=== PATIENT | male | born 1980 | race Asian ===

== ENCOUNTER 2018-03-13 19:33 | Emergency (ER) | payer OTHER ==
[~2018-03-13] VITALS: Ht 180.3 cm; Wt 94.8 kg
[2018-03-13 19:40] VITALS: BP_SYST 99
--- NOTE | 2018-03-13 19:40 | NUR ---
Patient to ER bed 4 to gown for evaluation. Side rails up.
--- NOTE | 2018-03-13 19:40 | NUR ---
Patient AAOx4, ambulatory with crutches. Patient states having a main complaint of left foot pain for approximately 3 days prior to ER visit. Patient states having a history of gout and states "I have been eating steak more than usual". Patient denies any mechanical injury. No redness or deformity noted to left foot. Patient denies any other complaints.
--- NOTE | 2018-03-13 19:52 | NUR ---
ER ANNA Lloyd at bedside examining patient.
[2018-03-13] MEDS ORDERED: COLCHICINE 0.6 MG TABLET PO ONE ×2 (20:00)
[2018-03-13] MEDS ORDERED: KETOROLAC TROMETHAMINE 30 MG VIAL IM ONE (20:00)
[2018-03-13] MEDS ORDERED: DEXAMETHASONE SOD PHOSPHATE 10 MG/ML VIAL IM ONE (20:00)
[2018-03-13] MEDS ORDERED: COLCHICINE 0.6 MG TABLET ONE (20:19)
[2018-03-13 20:25] LABS: BASOPHILS # (AUTO) 0.1 K/uL (0.0-0.2); BASOPHILS % (AUTO) 0.9 % (0.0-2.0); EOSINOPHILS # (AUTO) 0.5 K/uL (0.0-0.4); EOSINOPHILS % (AUTO) 5.8 % (0.0-4.0); HEMATOCRIT 45.6 % (36-54); HEMOGLOBIN 15.3 g/dL (14.0-18.0); LYMPHOCYTES # (AUTO) 1.4 K/uL (1.0-5.5); LYMPHOCYTES % (AUTO) 15.7 % (20.5-51.5); MEAN CORPUSCULAR HEMOGLOBIN 30 pg (27-31); MEAN CORPUSCULAR HGB CONC 34 % (32-36); MEAN CORPUSCULAR VOLUME 89 fL (79.0-98.0); MONOCYTES # (AUTO) 0.7 K/uL (0.0-1.0); MONOCYTES % (AUTO) 8.2 % (1.7-9.3); NEUTROPHILS # (AUTO) 6.2 K/uL (1.8-7.7); NEUTROPHILS % (AUTO) 69.4 % (40.0-70.0); PLATELET COUNT (AUTO) 300 K/uL (130-430); RED BLOOD CELL COUNT(AUTO) 5.12 MIL/uL (4.2-6.2); RED CELL DISTRIBUTION WIDTH 12.6 % (9.0-15.0); WHITE BLOOD COUNT (AUTO) 8.9 K/uL (4.8-10.8)
[2018-03-13 20:31] LABS: CALCIUM 9.2 mg/dL (8.4-11.0); CREATININE 1.15 mg/dL (0.55-1.30); POTASSIUM 3.9 mmol/L (3.5-5.1)
[2018-03-13 20:36] LABS: ALBUMIN 3.6 g/dL (3.4-4.8); TOTAL BILIRUBIN 0.5 mg/dL (0.0-1.0); URIC ACID 7.8 mg/dL (2.4-7.0)
[2018-03-13 21:20] VITALS: BP_SYST 108
--- NOTE | 2018-03-13 21:20 | NUR ---
Patient given written and verbal discharge instructions and verbalizes understanding. ER MD discussed with patient the results and treatment provided. Patient in stable condition. ID arm band removed. Rx of naproxen, norco, and prednisone given. Patient educated on pain management and to follow up with PMD. Pain Scale 0/10. Opportunity for questions provided and answered.
== END 2018-03-13 21:20 | disposition home or self-care (01) ==
LOC: SED 19:33
DX: M10.9 Gout, unspecified (principal)
CPT/HCPCS: 36415; 73610; 80053; 84550; 85025; 96372; 99285; J1100; J1885

== ENCOUNTER 2018-10-21 01:58 | Emergency (ER) | payer OTHER ==
[~2018-10-21] VITALS: Ht 180.3 cm; Wt 94.3 kg
[2018-10-21 02:05] VITALS: BP_SYST 153
[2018-10-21] MEDS ORDERED: KETOROLAC TROMETHAMINE 60 MG/2 ML VIAL IM ONE (02:30)
[2018-10-21 02:38] VITALS: BP_SYST 153
== END 2018-10-21 02:37 | disposition home or self-care (01) ==
LOC: SED 01:58
DX: M10.072 Idiopathic gout, left ankle and foot (principal); R03.0 Elevated blood-pressure reading, without diagnosis of hypertension
CPT/HCPCS: 96372; 99283; J1885

== ENCOUNTER 2019-09-02 18:07 | Emergency (ER) | payer OTHER ==
[~2019-09-02] VITALS: Ht 180.3 cm; Wt 93.0 kg
[2019-09-02 18:34] VITALS: BP_SYST 153
[2019-09-02] MEDS ORDERED: LIDOCAINE/EPI 1% 1:100000 20 ML VIAL INJ ONE (20:45)
[2019-09-02] MEDS ORDERED: methylPREDNISolone SOD SUCC/PF 62.5 MG/ML VIAL ONE (21:50)
[2019-09-02 21:55] VITALS: BP_SYST 135
== END 2019-09-02 21:55 | disposition home or self-care (01) ==
LOC: SED 18:07
DX: S83.92XA Sprain of unspecified site of left knee, initial encounter (principal); M10.9 Gout, unspecified; X50.1XXA Overexertion from prolonged static or awkward postures, initial encounter; Y93.89 Activity, other specified; Y92.89 Other specified places as the place of occurrence of the external cause; Y99.8 Other external cause status
CPT/HCPCS: 20611; 73564; 99284; J2930

== ENCOUNTER 2019-09-07 13:51 | Outpatient (CLI) | payer OTHER ==
[2019-09-07 14:37] LABS: BASOPHILS # (AUTO) 0.2 K/uL (0.0-0.2); BASOPHILS % (AUTO) 2.4 % (0.0-2.0); EOSINOPHILS # (AUTO) 0.8 K/uL (0.0-0.4); EOSINOPHILS % (AUTO) 10.6 % (0.0-4.0); HEMATOCRIT 47.4 % (36-54); HEMOGLOBIN 15.7 g/dL (14.0-18.0); LYMPHOCYTES # (AUTO) 2.1 K/uL (1.0-5.5); LYMPHOCYTES % (AUTO) 27.9 % (20.5-51.5); MEAN CORPUSCULAR HEMOGLOBIN 29 pg (27-31); MEAN CORPUSCULAR HGB CONC 33 % (32-36); MEAN CORPUSCULAR VOLUME 88 fL (79.0-98.0); MONOCYTES # (AUTO) 0.6 K/uL (0.0-1.0); MONOCYTES % (AUTO) 8.1 % (1.7-9.3); NEUTROPHILS # (AUTO) 3.8 K/uL (1.8-7.7); PLATELET COUNT (AUTO) 323 K/uL (130-430); RED BLOOD CELL COUNT(AUTO) 5.36 MIL/uL (4.2-6.2); RED CELL DISTRIBUTION WIDTH 13.7 % (9.0-15.0); WHITE BLOOD COUNT (AUTO) 7.5 K/uL (4.8-10.8)
[2019-09-07 14:48] LABS: BILIRUBIN,URINE NEGATIVE (NEGATIVE); BLOOD, URINE NEGATIVE (NEGATIVE); CLARITY/URINE CLEAR (CLEAR); COLOR,URINE YELLOW (YELLOW); GLUCOSE,URINE NEGATIVE (NEGATIVE); KETONES,URINE NEGATIVE (NEGATIVE); LEUKOCYTE ESTERASE ,URINE NEGATIVE (NEGATIVE); NITRITE, URINE NEGATIVE (NEGATIVE); PROTEIN URINE NEGATIVE (NEGATIVE); UROBILINOGEN,URINE 0.2 (0.2-1.0)
[2019-09-07 14:57] LABS: ALANINE AMINOTRANSFERASE 34 U/L (12-78); ALBUMIN 3.7 g/dL (3.4-4.8); ANION GAP 5 (5-15); ASPARTATE AMINOTRANSFERASE 20 U/L (10-37); C-REACTIVE PROTEIN QUANT < 0.2 mg/dL (0-0.5); CALCIUM 9.1 mg/dL (8.4-11.0); CHLORIDE 101 mmol/L (98-107); CHOLESTEROL 201 mg/dL (<200); CREATININE 1.41 mg/dL (0.55-1.30); GLUCOSE 94 mg/dL (70-99); HDL CHOLESTEROL 47 mg/dL (>45); LDL CHOLESTEROL 134 mg/dL (<100); POTASSIUM 3.5 mmol/L (3.5-5.1); SODIUM SERUM 138 mmol/L (136-145); TOTAL BILIRUBIN 0.3 mg/dL (0.0-1.0); TRIGLYCERIDES 157 mg/dL (30-150); UREA NITROGEN, BLOOD 18 mg/dL (8-21); URIC ACID 10.2 mg/dL (2.4-7.0)
[2019-09-07 15:01] LABS: GFR AFRICAN AMERICAN 72 mL/min (>90)
[2019-09-07 15:21] LABS: THYROID STIMULATING HORMONE 4.09 uIu/mL (0.36-3.74)
[2019-09-07 15:51] LABS: ERYTHROCYTE SEDIMENTATION RATE 25 MM/HR (0-15)
[2019-09-08 08:11] LABS: RA LATEX TURBID <10.0 IU/mL (0.0-13.9)
[2019-09-08 14:17] LABS: ANTI NUCLEAR AB WITH REFLEX Negative (Negative)
[2019-09-08 14:29] LABS: HEMOGLOBIN A1C 5.7 % (4.8-5.6)
== END 2019-09-07 20:01 | disposition home or self-care (01) ==
LOC: SLB 13:51
PROVIDERS: ATTEND Internal Medicine
DX: Z00.00 Encounter for general adult medical examination without abnormal findings (principal)
CPT/HCPCS: 36415; 80053; 80061; 81003; 82306; 82607; 83036; 84443-TC; 84550-TC; 85025; 85651-TC; 86038; 86140; 86431

== ENCOUNTER 2019-11-12 15:45 | Emergency (ER) | payer OTHER ==
[~2019-11-12] VITALS: Ht 180.3 cm; Wt 91.6 kg
[2019-11-12 15:45] VITALS: BP_SYST 148
[2019-11-12] MEDS ORDERED: LIDOCAINE 1% 10 MG/ML, 20 ML MDV INJ ONE ×2 (16:00→22:30)
[2019-11-12] MEDS ORDERED: cefTRIAXone 1 GM IVPB PREMIX 50 ML IV ONE (20:15)
[2019-11-12] MEDS ORDERED: methylPREDNISolone ACETATE 80 MG/ML IM ONE (22:30)
[2019-11-13 02:27] VITALS: BP_SYST 140
== END 2019-11-13 02:27 | disposition home or self-care (01) ==
LOC: SED 15:45
DX: M11.262 Other chondrocalcinosis, left knee (principal); M11.261 Other chondrocalcinosis, right knee; M25.462 Effusion, left knee; M10.9 Gout, unspecified
CPT/HCPCS: 36415; 73560; 76942; 84560; 87070; 89060; 96365; 96372; 99285; J0696; J1040; J2001

== ENCOUNTER → 2020-12-03 | Outpatient (CLI) | payer OTHER ==
[2020-12-03 11:01] LABS: BASOPHILS # (AUTO) 0.1 K/uL (0.0-0.2); BASOPHILS % (AUTO) 1.3 % (0.0-2.0); EOSINOPHILS # (AUTO) 0.3 K/uL (0.0-0.4); EOSINOPHILS % (AUTO) 3.8 % (0.0-4.0); HEMATOCRIT 48.3 % (36-54); HEMOGLOBIN 16.1 g/dL (14.0-18.0); LYMPHOCYTES # (AUTO) 1.9 K/uL (1.0-5.5); LYMPHOCYTES % (AUTO) 28.2 % (20.5-51.5); MEAN CORPUSCULAR HEMOGLOBIN 30 pg (27-31); MEAN CORPUSCULAR HGB CONC 33 % (32-36); MEAN CORPUSCULAR VOLUME 90 fL (79.0-98.0); MONOCYTES # (AUTO) 0.6 K/uL (0.0-1.0); MONOCYTES % (AUTO) 8.3 % (1.7-9.3); NEUTROPHILS # (AUTO) 3.9 K/uL (1.8-7.7); NEUTROPHILS % (AUTO) 58.4 % (40.0-70.0); PLATELET COUNT (AUTO) 259 K/uL (130-430); RED BLOOD CELL COUNT(AUTO) 5.37 MIL/uL (4.2-6.2); RED CELL DISTRIBUTION WIDTH 14.5 % (9.0-15.0); WHITE BLOOD COUNT (AUTO) 6.7 K/uL (4.8-10.8)
[2020-12-03 11:38] LABS: POTASSIUM 4.5 mmol/L (3.5-5.1); TOTAL BILIRUBIN 0.4 mg/dL (0.0-1.0)
[2020-12-03 11:39] LABS: THYROID STIMULATING HORMONE 2.06 uIu/mL (0.36-3.74); URIC ACID 5.3 mg/dL (2.4-7.0)
[2020-12-03 12:39] LABS: ERYTHROCYTE SEDIMENTATION RATE 11 MM/HR (0-15)
[2020-12-04 03:06] LABS: HEMOGLOBIN A1C 5.5 % (4.8-5.6)
== END | disposition home or self-care (01) ==
LOC: SLB 10:21
PROVIDERS: ATTEND Internal Medicine
DX: Z00.01 Encounter for general adult medical examination with abnormal findings (principal); M10.072 Idiopathic gout, left ankle and foot; E55.9 Vitamin D deficiency, unspecified; E03.9 Hypothyroidism, unspecified
CPT/HCPCS: 36415; 80053; 80061; 82306; 82607; 83036; 83735; 84439; 84443; 84550; 85025; 85651-TC

== ENCOUNTER 2020-12-04 10:40 | Outpatient (CLI) | payer OTHER | END 2020-12-05 16:06 | disposition home or self-care (01) | LOC: SMI 10:40 | PROVIDERS: ATTEND Internal Medicine | DX: S83.207A Unspecified tear of unspecified meniscus, current injury, left knee, initial encounter (principal); M22.42 Chondromalacia patellae, left knee; M25.462 Effusion, left knee; X58.XXXA Exposure to other specified factors, initial encounter; Y93.89 Activity, other specified; Y92.89 Other specified places as the place of occurrence of the external cause; Y99.8 Other external cause status | CPT/HCPCS: 73721 ==

== ENCOUNTER 2021-05-04 15:47 | Outpatient (CLI) | payer OTHER ==
[2021-05-04 17:03] LABS: BASOPHILS # (AUTO) 0.1 K/uL (0.0-0.2); BASOPHILS % (AUTO) 1.4 % (0.0-2.0); EOSINOPHILS # (AUTO) 0.1 K/uL (0.0-0.4); EOSINOPHILS % (AUTO) 2.6 % (0.0-4.0); HEMATOCRIT 45.7 % (36-54); HEMOGLOBIN 15.7 g/dL (14.0-18.0); LYMPHOCYTES # (AUTO) 1.7 K/uL (1.0-5.5); LYMPHOCYTES % (AUTO) 34.4 % (20.5-51.5); MEAN CORPUSCULAR HEMOGLOBIN 30 pg (27-31); MEAN CORPUSCULAR HGB CONC 34 % (32-36); MEAN CORPUSCULAR VOLUME 88 fL (79.0-98.0); MONOCYTES # (AUTO) 0.5 K/uL (0.0-1.0); NEUTROPHILS # (AUTO) 2.7 K/uL (1.8-7.7); NEUTROPHILS % (AUTO) 52.6 % (40.0-70.0); PLATELET COUNT (AUTO) 213 K/uL (130-430); RED BLOOD CELL COUNT(AUTO) 5.18 MIL/uL (4.2-6.2); RED CELL DISTRIBUTION WIDTH 14.3 % (9.0-15.0); WHITE BLOOD COUNT (AUTO) 5.1 K/uL (4.8-10.8)
[2021-05-04 17:34] LABS: ANION GAP 11 (5-15); CALCIUM 9.4 mg/dL (8.4-11.0); CHLORIDE 101 mmol/L (98-107); GLUCOSE 101 mg/dL (70-99); POTASSIUM 3.6 mmol/L (3.5-5.1); SODIUM SERUM 138 mmol/L (136-145)
[2021-05-04 17:35] LABS: ALANINE AMINOTRANSFERASE 36 U/L (12-78); ALBUMIN 4.1 g/dL (3.4-4.8); ASPARTATE AMINOTRANSFERASE 21 U/L (10-37); GFR AFRICAN AMERICAN 120 mL/min (>90); TOTAL BILIRUBIN 0.5 mg/dL (0.0-1.0); UREA NITROGEN, BLOOD 12 mg/dL (8-21); URIC ACID 5.8 mg/dL (2.4-7.0)
[2021-05-04 17:43] LABS: ERYTHROCYTE SEDIMENTATION RATE 7 MM/HR (0-15)
[2021-05-04 18:07] LABS: BILIRUBIN,URINE NEGATIVE (NEGATIVE); BLOOD, URINE NEGATIVE (NEGATIVE); CLARITY/URINE CLEAR (CLEAR); COLOR,URINE YELLOW (YELLOW); GLUCOSE,URINE NEGATIVE (NEGATIVE); KETONES,URINE NEGATIVE (NEGATIVE); LEUKOCYTE ESTERASE ,URINE NEGATIVE (NEGATIVE); NITRITE, URINE NEGATIVE (NEGATIVE); PROTEIN URINE NEGATIVE (NEGATIVE); UROBILINOGEN,URINE 0.2 (0.2-1.0)
[2021-05-04 18:08] LABS: THYROID STIMULATING HORMONE 1.67 uIu/mL (0.36-3.74)
[2021-05-04 19:07] LABS: C-REACTIVE PROTEIN QUANT < 0.2 mg/dL (0-0.5); CHOLESTEROL 201 mg/dL (<200); HDL CHOLESTEROL 68 mg/dL (>45); LDL CHOLESTEROL 132 mg/dL (<100); TRIGLYCERIDES 72 mg/dL (30-150)
[2021-05-05 06:09] LABS: HEMOGLOBIN A1C 5.5 % (4.8-5.6)
== END 2021-05-04 20:34 | disposition home or self-care (01) ==
LOC: SLB 15:47
PROVIDERS: ATTEND Internal Medicine
DX: E03.9 Hypothyroidism, unspecified (principal); M10.00 Idiopathic gout, unspecified site; E55.9 Vitamin D deficiency, unspecified; M17.12 Unilateral primary osteoarthritis, left knee; M54.40 Lumbago with sciatica, unspecified side
CPT/HCPCS: 36415; 80053; 80061; 81003; 82306; 82607; 83036; 83735; 84443; 84550; 85025; 85651-TC; 86140

== ENCOUNTER 2022-12-20 16:42 | Emergency (ER) | payer OTHER ==
[~2022-12-20] VITALS: Ht 180.3 cm; Wt 90.7 kg
[2022-12-20] MEDS ORDERED: TRAM50TA2 PO (16:57)
[2022-12-20] MEDS ORDERED: MORPHINE 4 MG INJ. 4 MG/ML VIAL IM ONE (17:00)
--- NOTE | 2022-12-20 17:00 | NUR ---
PT BIB SELF AWAKE AND ALERT. PT C/O BACK PAIN 03/10. PT DENIES TRAUMA. PT HAS HX OF LOWER BACK PAIN.
--- NOTE | 2022-12-20 17:05 | NUR ---
MD DR ESCOBAR AT BEDSIDE
[2022-12-20 17:28] VITALS: BP_SYST 135
--- NOTE | 2022-12-20 17:30 | NUR ---
Patient given written and verbal discharge instructions and verbalizes understanding. ER MD DR ESCOBAR discussed with patient the results and treatment provided. Patient in stable condition. ID arm band removed. Rx of TRAMADOL given. Patient educated on pain management and to follow up with PMD. Pain Scale 2/10. Opportunity for questions provided and answered. Medication side effect fact sheet provided.
[2022-12-20 19:31] VITALS: BP_SYST 135
== END 2022-12-20 19:31 | disposition home or self-care (01) ==
LOC: SED 16:42
DX: M54.50 Low back pain, unspecified (principal); G89.29 Other chronic pain; Z79.899 Other long term (current) drug therapy
CPT/HCPCS: 99283; 96372; J2270

== ENCOUNTER 2023-03-11 09:48 | Emergency (ER) | payer OTHER ==
[~2023-03-11] VITALS: Ht 180.3 cm; Wt 94.3 kg
[~2023-03-11 09:48] MED LIST: TRAM50TA2 PO
[2023-03-11 09:59] VITALS: BP_SYST 143; PULSE 62; RESP 18; TEMP 97.4; O2SAT 96
[2023-03-11] MEDS ORDERED: IBUP-1971 PO (11:09)
[2023-03-11] MEDS ORDERED: SOM350 PO (11:09)
[2023-03-11 11:20] VITALS: BP_SYST 143; PULSE 62; RESP 18; TEMP 97.4; O2SAT 96
== END 2023-03-11 11:19 | disposition home or self-care (01) ==
LOC: SED 09:48
DX: S13.4XXA Sprain of ligaments of cervical spine, initial encounter (principal); S33.5XXA Sprain of ligaments of lumbar spine, initial encounter; S09.90XA Unspecified injury of head, initial encounter; Z79.899 Other long term (current) drug therapy; V49.40XA Driver injured in collision with unspecified motor vehicles in traffic accident, initial encounter; Y93.89 Activity, other specified; Y92.89 Other specified places as the place of occurrence of the external cause; Y99.8 Other external cause status
CPT/HCPCS: 70450-TC; 72100-TC; 72125-TC; 76376; 99284

== ENCOUNTER 2023-03-18 16:58 | Emergency (ER) | payer OTHER ==
[~2023-03-18] VITALS: Ht 180.3 cm; Wt 91.6 kg
[~2023-03-18 16:58] MED LIST changes: +IBUP-1971 PO; +SOM350 PO
[2023-03-18 17:30] VITALS: BP_SYST 112; PULSE 66; RESP 18; TEMP 97.7; O2SAT 98
[2023-03-18] MEDS ORDERED: MORPHINE 4 MG INJ. 4 MG/ML VIAL IM ONE (18:30)
[2023-03-18] MEDS ORDERED: IBUP-1971 PO (18:33)
[2023-03-18] MEDS ORDERED: HYDR-3927 PO (18:33)
[2023-03-18 18:49] VITALS: BP_SYST 112; PULSE 66; RESP 18; TEMP 97.7; O2SAT 98
== END 2023-03-18 18:49 | disposition home or self-care (01) ==
LOC: SED 16:58
DX: G89.29 Other chronic pain (principal); M54.50 Low back pain, unspecified; M79.662 Pain in left lower leg; Z79.899 Other long term (current) drug therapy
CPT/HCPCS: 99283; 96372; J2270

== ENCOUNTER 2023-04-13 16:08 | Outpatient (CLI) | payer OTHER ==
[~2023-04-13 16:08] MED LIST changes: +HYDR-3927 PO
[2023-04-13 16:50] LABS: BASOPHILS # (AUTO) 0.1 K/uL (0.0-0.2); BASOPHILS % (AUTO) 1.1 % (0.0-2.0); EOSINOPHILS # (AUTO) 0.3 K/uL (0.0-0.4); HEMATOCRIT 44.9 % (36-54); HEMOGLOBIN 14.9 g/dL (14.0-18.0); LYMPHOCYTES # (AUTO) 1.4 K/uL (1.0-5.5); LYMPHOCYTES % (AUTO) 18.9 % (20.5-51.5); MEAN CORPUSCULAR HEMOGLOBIN 28 pg (27-31); MEAN CORPUSCULAR HGB CONC 33 % (32-36); MEAN CORPUSCULAR VOLUME 86 fL (79.0-98.0); MONOCYTES # (AUTO) 0.7 K/uL (0.0-1.0); MONOCYTES % (AUTO) 9.1 % (1.7-9.3); NEUTROPHILS # (AUTO) 5.1 K/uL (1.8-7.7); NEUTROPHILS % (AUTO) 66.9 % (40.0-70.0); PLATELET COUNT (AUTO) 316 K/uL (130-430); RED BLOOD CELL COUNT(AUTO) 5.25 MIL/uL (4.2-6.2); RED CELL DISTRIBUTION WIDTH 14.7 % (9.0-15.0); WHITE BLOOD COUNT (AUTO) 7.6 K/uL (4.8-10.8)
[2023-04-13 17:42] LABS: ALBUMIN 3.9 g/dL (3.4-4.8); CALCIUM 8.8 mg/dL (8.4-11.0); CREATININE 1.14 mg/dL (0.55-1.30); POTASSIUM 3.6 mmol/L (3.5-5.1); THYROID STIMULATING HORMONE 1.91 uIu/mL (0.34-4.82); TOTAL BILIRUBIN 0.4 mg/dL (0.0-1.0); TOTAL PROTEIN, SERUM 8.2 g/dL (6.4-8.3)
== END 2023-04-13 17:38 | disposition home or self-care (01) ==
LOC: SLB 16:08
PROVIDERS: ATTEND Internal Medicine
DX: E11.65 Type 2 diabetes mellitus with hyperglycemia (principal); E78.5 Hyperlipidemia, unspecified; E03.9 Hypothyroidism, unspecified; E55.9 Vitamin D deficiency, unspecified; E56.9 Vitamin deficiency, unspecified
CPT/HCPCS: 36415; 80053; 80061; 82306; 82607; 83037; 84443; 84550; 85025